=== PATIENT | female | born 2000 | race Caucasian/White ===

== ENCOUNTER 2022-10-23 17:32 | Emergency (ER) | payer OTHER ==
[2022-10-23 18:21] LABS: #Basophils 0.1 10x3/uL (0.0-0.2); #Eosinphils 0.4 10x3/uL (0.0-0.5); #Monocytes 0.5 10x3/uL (0.0-1.1); #Neutrophils 6.5 10x3/uL (1.5-8.4); %Eosinophils 3.7 % (0.0-6.0); %Lymphocytes 20.7 % (18.0-47.0); %Monocytes 5.5 % (0.0-10.0); %Neutrophils 68.9 % (40.0-75.0); Hemoglobin 12.3 g/dL (12.0-15.5); Mean Corpuscular HGB CONC 31.1 g/dL (32.0-36.0); Mean Corpuscular Hemoglobin 25.1 pg (27.0-33.0); Mean Corpuscular Volume 80.8 fl (81.6-98.3); Mean Platelet Volume 10.1 fl (7.4-10.4); Platelet Count 322 10x3/uL (150-450); RBC Distribution Width 15.1 % (11.5-14.5); White Blood Cell (WBC) Count 9.4 10x3/uL (3.5-10.5)
[2022-10-23 18:28] LABS: ALT (SGPT) 13 U/L (8-55); AST (SGOT) 13 U/L (5-34); Albumin 3.7 g/dL (3.5-5.0); Alkaline Phosphatase 63 U/L (40-110); Anion Gap 12 mmol/L (10-20); BUN (Urea Nitrogen) 9 mg/dL (7.0-18.7); Bilirubin, Total 0.2 mg/dL (0.2-1.2); Calc. Creatinine Clearance 0 mL/min (70-130); Calcium 8.7 mg/dL (7.8-10.44); Carbon Dioxide 22 mmol/L (22-29); Chloride 106 mmol/L (98-107); Estimated GFR 109; Globulin 2.8 g/dL (2.4-3.5); Glucose 101 mg/dL (70-105); Potassium 3.7 mmol/L (3.5-5.1); Protein, Total 6.5 g/dL (6.0-8.3); Sodium 136 mmol/L (136-145)
[2022-10-23 19:05] LABS: Bilirubin Neg (Negative); Blood, Urine 50 (Negative); Clarity Clear (Clear); Glucose, Urine (Dipstick) Normal (Negative); Ketone, Urine Negative (Negative); Leukocyte 500 (Negative); Nitrite Negative (Negative); Protein, Urine (Dipstick) Negative (Neg-Trace); Urobilinogen Normal mg/dL (Less than 2)
[2022-10-23 19:23] LABS: Squamous Epithelial 0-3 HPF (0-3); WBC/HPF 0-3 HPF (0-3)
[2022-10-23 19:25] LABS: Bacteria/HPF 3+ HPF (None Seen)
== END 2022-10-23 19:18 | disposition home or self-care (01) ==
LOC: CSHERS 17:32
DX: O20.0 Threatened abortion (principal); Z3A.01 Less than 8 weeks gestation of pregnancy
CPT/HCPCS: 76856; 80053; 81003; 81015; 84702; 85025; 86900; 86901

== ENCOUNTER 2023-06-14 09:53 | Inpatient (IN) | payer OTHER ==
[2023-06-14] MEDS ORDERED: Penicillin G Potassium 5 MILL.UNITS VIAL ONE (10:30)
[2023-06-14 10:43] VITALS: BMI 42.3
[2023-06-14] MEDS ORDERED: Acetaminophen 500 MG TAB PO PRN (11:15)
[2023-06-14] MEDS ORDERED: Ondansetron PF 4 MG/2 ML Vial IVP PRN ×3 (11:15→23:47)
[2023-06-14] MEDS ORDERED: Lactated Ringer's 1,000 ML IV SCH (11:15)
[2023-06-14] MEDS ORDERED: Oxytocin 30 units/NS 500 ML 500 ML IVPB SCH (11:15)
[2023-06-14 11:25] LABS: Hematocrit 34.7 % (34.9-44.5); Hemoglobin 11.5 g/dL (12.0-15.5); Mean Corpuscular HGB CONC 33.1 g/dL (32.0-36.0); Mean Corpuscular Hemoglobin 26.2 pg (27.0-33.0); Mean Platelet Volume 10.8 fl (7.4-10.4); Platelet Count 355 10x3/uL (150-450); RBC Distribution Width 14.7 % (11.5-14.5); Red Blood Cell (RBC) Count 4.39 10x6/uL (3.90-5.03); White Blood Cell (WBC) Count 11.8 10x3/uL (3.5-10.5)
[2023-06-14] MEDS ORDERED: fentaNYL/Ropivacaine Epidural 100 ML ONE (12:17)
[2023-06-14] MEDS ORDERED: Oxytocin 30 units/NS 500 ML 500 ML IV SCH (13:00)
[2023-06-14] MEDS ORDERED: Bupivacaine 0.25% HCL 30 ML VIAL ONE (13:00)
[2023-06-14 13:52] LABS: HBSAg Index 0.12 S/CO (0-0.99); Hep B Surf Ag - L&D Non-Reactive S/CO (NonReactive)
[2023-06-14 13:55] LABS: Syphilis Antibody Nonreactive (Nonreactive); Syphilis Antibody Index 0.05 S/CO (<1.00 Non-Reactive)
[2023-06-14] MEDS ORDERED: Lactated Ringer's 500 ML IV PRN (14:12)
[2023-06-14] MEDS ORDERED: Moisturizing Cream (Eucerin) 113 GM JAR TOP PRN (14:12)
[2023-06-14] MEDS ORDERED: ePHEDrine Sulfate 50 MG/10 ML VIAL SLOW IVP PRN (14:12)
[2023-06-14] MEDS ORDERED: diphenhydrAMINE 50 MG/ML VIAL IVP PRN (14:12)
[2023-06-14] MEDS ORDERED: Promethazine HCl 25 MG/ML VIAL IM PRN ×2 (14:12→23:47)
[2023-06-14] MEDS ORDERED: Acetaminophen 325 MG TAB PO PRN (14:12)
[2023-06-14] MEDS ORDERED: Naloxone HCl 0.4 mg/ml Vial IVP PRN ×2 (14:12)
[2023-06-14] MEDS ORDERED: Communication Order-Pharmacy FS SCH (14:15)
[2023-06-14] MEDS ORDERED: fentaNYL 2 mcg/Ropivacaine 0.2% Epidural 100 ML CADD EPIDURAL SCH (14:15)
[2023-06-14] MEDS ORDERED: Pen G 2.5 MILL.UNITS/50 ML BAG IVPB SCH ×2 (15:00→17:00)
[2023-06-14] MEDS ORDERED: fentaNYL 50 mcg/mL 1 mL Vial ONE (15:29)
[2023-06-14] MEDS ORDERED: Boostrix 0.5 ML (Tdap) VIAL (>/=7 yrs of age) IM ONE (23:47)
[2023-06-14] MEDS ORDERED: Benzocaine-Menthol 82.5 ML CAN TOP PRN (23:47)
[2023-06-14] MEDS ORDERED: HYDROcodone/Acetaminophen 5/325 mg Tablet PO PRN (23:47)
[2023-06-14] MEDS ORDERED: Milk Of Magnesia 30 ML UDCUP PO PRN (23:47)
[2023-06-14] MEDS ORDERED: diphenhydrAMINE 25 MG CAP PO PRN (23:47)
[2023-06-14] MEDS ORDERED: Lanolin Ointment 7 GM TUBE TOP PRN (23:47)
[2023-06-14] MEDS ORDERED: hydrALAZINE 20 MG/ML VIAL SLOW IVP PRN (23:47)
[2023-06-14] MEDS ORDERED: Bisacodyl 10 MG SUPP PR PRN (23:47)
[2023-06-14] MEDS ORDERED: Preparation H Ointment 28 GM TUBE PR PRN (23:47)
[2023-06-15] MEDS ORDERED: Ibuprofen 800 MG TAB PO SCH (00:01)
[2023-06-15] MEDS: Ibuprofen 800 MG TAB PO SCH ×3 (05:22→21:37)
[2023-06-15] MEDS: Ferrous Sulfate 325 MG TAB PO SCH ×2 (08:43→16:42)
[2023-06-15] MEDS: Prenatal Vitamin 1 TAB PO SCH (08:43)
[2023-06-15] MEDS: Docusate 100 MG CAP PO SCH ×2 (08:43→21:37)
[2023-06-16] MEDS: Ibuprofen 800 MG TAB PO SCH (06:05)
[2023-06-16] MEDS: Ferrous Sulfate 325 MG TAB PO SCH (07:30)
[2023-06-16] MEDS: Docusate 100 MG CAP PO SCH (08:43)
[2023-06-16] MEDS: Prenatal Vitamin 1 TAB PO SCH (08:43)
[2023-06-16 12:04] VITALS: BP 117/69; TEMP 98
== END 2023-06-16 11:20 | disposition home or self-care (01) | DRG 807 ==
LOC: CSHLD/OP 09:53 → CSHLD 10:57 → CSHPED 23:10
PROVIDERS: ADMIT Family Medicine; ATTEND Family Medicine
PROC: 10E0XZZ Delivery of Products of Conception, External Approach (ICD-10-PCS; principal; 2023-06-14)
PROC: 0KQM0ZZ Repair Perineum Muscle, Open Approach (ICD-10-PCS; 2023-06-14)
DX: O42.02 Full-term premature rupture of membranes, onset of labor within 24 hours of rupture (principal); Z37.0 Single live birth; Z3A.39 39 weeks gestation of pregnancy; O99.824 Streptococcus B carrier state complicating childbirth; O70.1 Second degree perineal laceration during delivery; O69.81X0 Labor and delivery complicated by cord around neck, without compression, not applicable or unspecified
CPT/HCPCS: 51702; 85027; 86780; 86850; 86900; 86901; 87340; 99285; J2540; J2590; S0020